=== PATIENT | female | born 2000 | race Two or more races ===

== ENCOUNTER → 2024-06-20 | Outpatient (CLI) | payer MEDICAID, SELFPAY ==
[2024-06-20 11:47] LABS: HIV 1&2 SCREEN NEGATIVE (NEGATIVE)
[2024-06-20 11:55] LABS: HEPATITIS C VIRUS ABY INDEX < 0.02 INDEX (<0.8)
== END ==
LOC: M LAB 10:14
PROVIDERS: ATTEND Physician Assistant Medical
DX: Z11.3 Encounter for screening for infections with a predominantly sexual mode of transmission (principal)